=== PATIENT | female | born 1960 | race Caucasian/White ===

== ENCOUNTER 2024-06-26 14:07 | Emergency (ER) | payer OTHER, SELFPAY ==
[2024-06-26 14:11] VITALS: BP 131/87
[2024-06-26 14:31] LABS: % Basophils 1.4 % (0-2); % Eosinophils 2.1 % (0-6); % Immature Granulocytes 0.2 % (0-0.5); % Lymphocytes 27.4 % (20.5-51.1); % Monocytes 6.7 % (1.7-9.3); % Neutrophils 62.2 % (42.2-75.2); Absolute Basophils 0.1 10^3/uL (0-0.2); Absolute Eosinophils 0.1 10^3/uL (0-0.7); Absolute Lymphocytes 1.7 10^3/uL (1.2-3.4); Absolute Monocytes 0.4 10^3/uL (0.1-0.6); Absolute Neutrophils 3.9 10^3/uL (1.4-6.5); Hematocrit 45.4 % (37.0-47.0); Hemoglobin 15.2 g/dL (12.0-16.0); Mean Corp Hgb Conc. 33.5 g/dL (33.0-37.0); Mean Corpuscular Hgb 33.3 pg (27.0-31.0); Mean Corpuscular Volume 99.3 fL (81.0-99.0); Mean Platelet Volume 9.9 fL (7.4-10.4); Nucleated Red Blood Cells % 0 %; Platelet Count 180 10^3/uL (130-400); Red Blood Cell Count 4.57 10^6/uL (4.20-5.40); Red Cell Dist. Width 12.8 % (11.5-14.5); White Blood Cell Count 6.2 10^3/uL (4.8-10.8)
[2024-06-26 14:44] LABS: ALT (SGPT) 47 U/L (0-35); AST (SGOT) 50 U/L (14-36); Albumin 4.4 g/dl (3.5-5.0); Alkaline Phosphatase 119 U/L (38-126); Blood Urea Nitrogen 37 mg/dl (7-17); Calcium 9.9 mg/dl (8.4-10.2); Carbon Dioxide 21 mmol/L (22-30); Chloride 108 mmol/L (98-107); Glucose 105 mg/dl (70-99); Potassium 4.9 mmol/L (3.5-5.1); Sodium 142 mmol/L (135-145); Total Bilirubin 1.3 mg/dl (0.2-1.3); Total Protein 6.8 g/dl (6.3-8.2); eGFR 42.01
[2024-06-26] MEDS: NSS 1000 IV (16:47)
--- NOTE | 2024-06-26 17:01 | ED.GENMED ---
History of Present Illness
General
Chief Complaint: Abnormal Lab Value
Source: patient
Time Seen by Provider: 06/26/24 16:28
History of Present Illness
History of Present Illness:
63-year-old female with past medical history of hyperlipidemia and rbh-pyrcycj-piiuhwjuu diabetes, hypothyroidism presenting to the ER at the request of primary care provider who states that over the last few weeks patient's creatinine has been
steadily increasing, last creatinine done a few days ago showed a BUN of 55 and a creatinine of 2.02. Prior to starting the Mounjaro in April 2024 her BUN was 22 and creatinine was 1.05. Patient states that she has not been experiencing any
nausea, vomiting or diarrhea but she states she really just has not wanted to eat or drink very much since starting the medication. She noted last week she did have an episode of where she felt as if she got very weak and flushed and had to go home
from work. At present time patient states she feels quite well and has no current symptoms and states she came to the ER because her primary doctor requested it.
Past History
Past History
ED Past Medical History: Hypercholesterolemia, NIDDM and Hypothyroidism
ED Past Surgical History: Cholecystectomy; Negative Appendectomy, Bowel resection or Cardiac
Social History
Tobacco: Non-smoker
Alcohol: Occasional
Drug: None
Personal:
Living: with family
Employment: Employed
Family History
Family History: Other (Noncontributory)
Review of Systems
Review of Systems
All Other Systems: ROS reviewed and negative except as documented in HPI and ROS
Phy Exam
Physical Exam
Physical Exam:
GENERAL: Alert , in no apparent distress
EYE: conjunctiva clear
NECK: Supple
ENT: o/p clr, mmm.
CARDIAC: Regular rate and rhythm
LUNGS: Clear breath sounds bilaterally, no acute respiratory distress, no wheezes/rales/rhonchi
NEUROLOGICAL: Alert and oriented
SKIN: Warm and dry, skin intact.
MUSCULOSKELETAL: well perfused.
PSYCH: Normal and appropriate interaction.
Scores
Heart Failure Risk
Heart Failure Risk Score: Not Applicable
Heart Score for Chest Pain Patients
STEMI patient?: Not applicable
Withdrawal Assessment of Alcohol
Withdrawal Assessment Completed?: Not applicable
Course
Orders/Labs/Results
Orders:
Orders
06/26/24 14:17
Complete Blood Count/With Diff Urgent
Comprehensive Metabolic Panel Urgent
06/26/24 16:28
0.9% Sodium Chloride 1000 ml [Nss] 1,000 ml IV BOLUS
US Kidneys [US Renal Only W/O Bladder] Urgent
Comment:
Reason For Exam: elevated creatinine
Abnormal Lab Results
06/26/24
14:17
MCV 99.3 H fL
(81.0-99.0)
MCH 33.3 H pg
(27.0-31.0)
Chloride 108 H mmol/L
(98-107)
Carbon Dioxide 21 L mmol/L
(22-30)
BUN 37 H mg/dl
(7-17)
Creatinine 1.4 H mg/dL
(0.6-1.0)
Glucose 105 H mg/dl
(70-99)
AST 50 H U/L
(14-36)
ALT 47 H U/L
(0-35)
06/26/24 14:17
06/26/24 14:17
Vital Signs
Initial and Last Documented VS:
Initial Vital Signs
Temp Pulse Resp BP Pulse Ox
98.6 F 91 18 131/87 99
06/26/24 14:11 06/26/24 14:11 06/26/24 14:11 06/26/24 14:11 06/26/24 14:11
Last Documented Vital Signs
Temp Pulse Resp BP Pulse Ox
98.6 F 91 18 131/87 99
06/26/24 14:11 06/26/24 14:11 06/26/24 14:11 06/26/24 14:11 06/26/24 14:11
MDM/Problems Addressed
Differential Diagnosis Includes:
Acute kidney injury secondary to newly started Mounjaro, dehydration, electrolyte derangement, less concern for nephritic/nephrotic syndrome, less concern for postrenal obstruction
MDM/Problems Addressed:
63-year-old female presenting to the ER for evaluation of abnormal renal function done on lab work with her primary care provider over the last few months. Last creatinine greater than 2. Labs on arrival here show a creatinine of 1.4, BUN of 37.
Patient is otherwise asymptomatic. Will treat with a liter of normal saline solution. Will check an ultrasound of the kidneys to rule out any hydronephrosis. I will reach out to patient's primary care provider to discuss. Anticipate discharge
home given improvement in her creatinine from outpatient labs.
Chronic conditions affecting care: DM
*Radiology
Radiology exam reviewed: radiology read reviewed
*Pulse Oximetry
Patient hypoxic: no
*Critical Care Note
Total Time (30-74mins, 75-104mins- exclusive of procedures): Not Applicable
Data Reviewed
Review of Other/Old Records Reveals: Labs and Records
Source: records and physician
Patient Management
Discussion with other providers: PCP
Escalation/DeEscalation of care consider admission/obs:
Patient's ultrasound without any acute findings. Did notify patient's primary care provider of the findings as well as the improvement in the current creatinine. Primary care will follow-up with the patient for continued creatinine monitoring.
She was treated with a 1 L normal saline solution bolus. Stable for discharge home.
ED Attending Note
-
Portions of this chart may have been created with voice recognition software.� Occasional wrong word or��sound alike� substitutions may have occurred due to the inherent limitations of voice recognition software.
Discharge Plan
Departure
Patient Disposition: Home (Routine Discharge)
Date of Disposition: 06/26/24
Time of Disposition: 17:32
Patient with high blood pressure during this ER visit?: No
Discharge Problem:
Acute kidney injury, Medication side effect
Instructions: Acute kidney injury
Prescriptions:
No Action
atorvastatin 40 MG tablet
40 mg PO QPM
metformin 500 MG tablet
500 mg PO QPM
venlafaxine 25 MG tablet
75 mg PO DAILY
levothyroxine 100 MCG tablet
100 mcg PO DAILY
ibuprofen 600 MG tablet
600 mg PO Q6 PRN (Reason: pain) Qty: 20 0RF
hydrocodone-acetaminophen 1 TABLET tablet
1 tab PO Q4HPRN PRN (Reason: pain) Qty: 10 0RF
diclofenac sodium [Voltaren] 100 GM gel
100 gm TP BID Qty: 1 0RF
Interventions
Interventions:
*Risk Screen - Suicide Last Done: 06/26/24 14:14
*General Assessment Last Done: 06/26/24 14:14
*Neglect/Abuse Screening Last Done: 06/26/24 14:14
*ED COVID-19 Vaccine History Last Done: 06/26/24 14:14
*Nursing Disposition Last Done: 06/26/24 17:38
Discharge Date and Time
Discharge Date/Time: 06/26/24 18:08
Print Language: UKRAINIAN
== END 2024-06-26 18:08 | disposition home or self-care (01) ==
LOC: EMR 14:07
PROVIDERS: Emergency Medicine; EMERGENCY PHYSICIAN Emergency Medicine; FAMILY PHYSICIAN Family Medicine
DX: N17.9 Acute kidney failure, unspecified (principal); T50.995A Adverse effect of other drugs, medicaments and biological substances, initial encounter; E78.00 Pure hypercholesterolemia, unspecified; E11.9 Type 2 diabetes mellitus without complications; E03.9 Hypothyroidism, unspecified; Z90.49 Acquired absence of other specified parts of digestive tract
CPT/HCPCS: 96360; 99284; 76775; 80053; 85025

== ENCOUNTER → 2024-10-02 10:26 | Outpatient (REF) | payer MEDICARE, SELFPAY | LOC: WDC 10:26 | PROVIDERS: ATTENDING PHYSICIAN Family Medicine | DX: Z78.0 Asymptomatic menopausal state (principal); Z12.31 Encounter for screening mammogram for malignant neoplasm of breast | CPT/HCPCS: 77063; 77067; 77080 ==

== ENCOUNTER → 2024-10-10 09:33 | Outpatient (REF) | payer MEDICARE, SELFPAY | LOC: WDC 09:33 | PROVIDERS: ATTENDING PHYSICIAN Family Medicine | DX: R92.8 Other abnormal and inconclusive findings on diagnostic imaging of breast (principal) | CPT/HCPCS: 76642 ==